=== PATIENT | female | born 1935 | race Caucasian/White ===

== ENCOUNTER → 2018-03-04 10:52 | Outpatient (CLI) | payer MEDICARE, BC, SELFPAY ==
--- NOTE | 2018-03-04 10:54 | DI.MG.S_ITS ---
BILATERAL DIGITAL SCREENING MAMMOGRAM 3D/2D WITH CAD: 03/04/2018 CLINICAL: Routine screening. Comparison is made to exams dated: 02/23/2017 mammogram, 02/21/2016 mammogram, and 02/02/2015 mammogram - [facility]. The tissue of both breasts is extremely dense, which lowers the sensitivity of mammography. Current study was also evaluated with a Computer Aided Detection (CAD) system. No significant masses, calcifications, or other findings are seen in either breast. There has been no significant interval change. IMPRESSION: NEGATIVE There is no mammographic evidence of malignancy. A 1 year screening mammogram is recommended. This exam was interpreted at Station ID: [id number]. NOTE: For mammograms, a report in lay terms will be sent to the patient. Approximately 15% of breast malignancies will not be visualized mammographically. In the management of a palpable breast mass, a negative mammogram must not discourage biopsy of a clinically suspicious lesion. Electronically Signed By: Andrew arias/yany:03/04/2018 16:35:38 letter sent: Normal Exam ACR BI-RADS Category 1: Negative [id number]
== END ==
PROVIDERS: PCP Family Medicine; Visit Provider Family Medicine
DX: Z12.31 Encounter for screening mammogram for malignant neoplasm of breast (principal)
CPT/HCPCS: 77063; 77067

== ENCOUNTER → 2018-03-14 13:28 | Outpatient (CLI) | payer MEDICARE, BC, SELFPAY ==
--- NOTE | 2018-03-14 13:30 | DI.RAD.S_ITS ---
PROCEDURE: XR KNEE LT 3V INDICATIONS: Pain in left knee TECHNIQUE: 3 views of the knee were acquired. COMPARISON: [facility] [place], [place], KNEE SERIES RT, 01/12/2014, 15:25. FINDINGS: Bones: No fractures or dislocations. No suspicious bony lesions. Loose bodies anterior lateral compartment. Joint space narrowing medial compartment and lateral aspect of the femoral patellar compartment. Marginal bony lipping. Soft tissues: No joint effusion. No suspicious soft tissue calcifications. IMPRESSION: 1. No joint effusion or acute bony abnormality. 2. Tricompartmental osteoarthritis 3. Loose bodies Dictated by: Jesus Bah M.D. on 03/14/2018 at 13:57 Approved by: Jesus Bah M.D. on 03/14/2018 at 13:59
== END ==
PROVIDERS: PCP Family Medicine; Visit Provider Physician Assistant
DX: M17.12 Unilateral primary osteoarthritis, left knee (principal); M23.42 Loose body in knee, left knee; M25.562 Pain in left knee
CPT/HCPCS: 73562

== ENCOUNTER 2018-05-02 10:30 | Outpatient (RCR) | payer MEDICARE, BC, SELFPAY ==
--- NOTE | 2018-04-10 10:30 | PT.OIE ---
Current Diagnoses Pain in left knee (04/10/18) Past Medical History (Last Updated 04/11/18 @ 14:25 by Emma Birch DO) Motion sickness (Chronic) Hyperlipidemia (Chronic 03/30/11) Basal cell carcinoma (BCC) (Chronic 01/21/14) Cataract of both eyes (Chronic 01/21/14) History of actinic keratosis (Chronic 04/23/14) Essential hypertension (Chronic 06/03/15) Other seasonal allergic rhinitis (Chronic 06/03/15) Gastroesophageal reflux disease without esophagitis (Chronic 03/15/16) Prediabetes (Chronic 12/27/16) Osteopenia (Chronic 12/27/16) Family history of cerebrovascular accident (CVA) (Chronic 04/16/17) Past Surgical History (Last Updated 12/25/17 @ 20:10 by Mary Bustos) Status post colonoscopy (05/19/11) Status post laparoscopic supracervical hysterectomy Provider Visit Care Team Role Provider Type Emma Birch DO Family Provider Physician Primary Care Provider Specialty: Family Practice Address: [address] [place] [address], [facility] Email: [email or web address] Felicita Potter PA-C Attending Provider [employer] Specialty: Medical Address: [address] [place] [address], [facility] Email: Physical Therapy Initial Evaluation PT-OP-A Visit Information Start: 04/12/18 08:29 Freq: Status: Active Protocol: Document 04/10/18 09:45 DCW (Rec: 04/12/18 09:14 DC [id number]) Out-Patient Physical Therapy Visit Information Visit Information Visit Type Initial Evaluation Visit Start Time 09:45 Visit Stop Time 10:30 Total Visit Minutes 45 Visit Number 1 Number of SPACE [employer] MISSI[employer]PERATIONS SPACELIFT Visits 0 Evaluation Information Evaluation Date 04/10/18 PT-OP-B Current Condition Start: 04/12/18 08:29 Freq: Status: Active Protocol: Document 04/10/18 09:45 DCW (Rec: 04/12/18 09:14 DC [id number]) Current Condition History of Current Condition Onset Date 1 month history Current Complaints Knee pain upon first standing after rest History of Current Condition Pt is an 82 year old female presenting with comlaints of knee pain upon first rising in the morning or after sitting. Pt reports a burning pain along her medial knee, and reports she feels like it is swollen. Pt has received x- rays, which show tricompartmental osteoarthritis and loose bodies in the anteriolateral compartment. Pt enjoys going out dancing, but has been very apprehensive about it recently, because she does not want to twist on it and make it hurt more. Pt reports her knee has been bothering her more than a month, and pt also admits that she fell walking down the stairts less than two months ago, but she does not feel that these two instances are related. Prior Treatments and Tests X-ray: 1. No joint effusion or acute bony abnormality. 2. Tricompartmental osteoarthritis 3. Loose bodies Future Testing and Treatments Planned Possible cortisone injection Treatment Goals Patient/Caregiver Goals I just want to get rid of this pain. Prior Functional Status Baseline Function- ADL's Independent Baseline Function- Mobility Independent Current Functional Impairments (Reported) Functional Limitations- Recreation/ Apprehensive with dancing and Hobbies performing housework. PT-OP-C Subjective Start: 04/12/18 08:29 Freq: Status: Active Protocol: Document 04/10/18 09:45 DC (Rec: 04/12/18 09:14 [facility] [id number]) Patient Questionnaires Lower Extremity Functional Scale LEFS Score 46/80 = 57.5% LEFS Impairment 40 to 59% Impaired (Score 32- 47) OP-PT Pain Assessment Pain Assessment Grid Paper Pain Assessment Grid Completed Yes Location Left Medial Knee Intensity 3 Scale Used Numeric (1 - 10) Description Burning Frequency Occasional Pain Aggravating Factors Standing Walking Pain Alleviating Factors Cold PT-OP-F Manual Assessment Start: 04/12/18 08:29 Freq: Status: Active Protocol: Document 04/10/18 09:45 DCW (Rec: 04/12/18 09:14 [facility] [id number]) Manual Assessments Soft Tissue Assessment Soft Tissue Mobility Assessment Mild tenderness and tone in distal medial hamstring and proximal medial gastroc. Joint Mobility Assessment Joint Mobility Assessment 2/4 Tenderness with palpation to medial joint line/MCL PT-OP-K Range of Motion Start: 04/12/18 08:29 Freq: Status: Active Protocol: Document 04/10/18 09:45 DCW (Rec: 04/12/18 09:14 DC [id number]) Knee Goniometric Range of Motion Knee Measured in Degrees Right Knee ROM WFL Yes Left Knee ROM WFL Yes PT-OP-L Special Tests Start: 04/12/18 08:29 Freq: Status: Active Protocol: Document 04/10/18 09:45 DCW (Rec: 04/12/18 09:14 DCW [id number]) Special Tests Knee Special Tests Varus- 25 Degrees Test Results Negative Varus- 0 Degrees Test Results Negative Valgus- 25 Degrees Test Results Negative Valgus- 0 Degrees Test Results Negative Posterior Draw Test Results Negative Patellar Grind Test Test Results Negative Patella Tap Test Results Negative Reddy Test Test Results Negative Salgado Chondromalacia Test Results Negative Audrey's Test Results Negative Moore Test Test Results Negative Bounce Home Test Results Negative Apprehension Test Test Results Negative Apley's Compression Test Results Negative Anterior Draw Test Results Negative PT-OP-M Strength Start: 04/12/18 08:29 Freq: Status: Active Protocol: Document 04/10/18 09:45 DCW (Rec: 04/12/18 09:14 DCW [id number]) Knee Strength Knee Manual Muscle Testing Right Flexion (S2) 4+ Good+ Extension (L3) 4+ Good+ Left Flexion (S2) 4+ Good+ Extension (L3) 4+ Good+ Comments Mild pain with resisted flexion PT-OP-T Assessment and Plan Start: 04/12/18 08:29 Freq: Status: Active Protocol: Document 04/10/18 09:45 DCW (Rec: 04/12/18 09:14 DC [id number]) Physical Therapy Assessment Rehab Potential Rehabilitation Potential Good Evaluation Complexity Number of Personal Factors/Comorbidities 0 Number of Body Systems Impaired 1-2 Clinical Presentation at Evaluation Stable Impairments Impairments Pain Soft Tissue Mobility Tone Goals Three Impairment Muscle Tone Short Term Goal (STG) Distal hamstring and proximal gastroc tone WNL STG Duration 04/24/18 Two Impairment Activity Tolerace Short Term Goal (STG) Pt to go out dancing three times with no complaints of increased pain STG Duration 04/24/18 Body Man Goal (LTG) Pt to report no pain upon first standing up from a chair LTG Duration 05/25/18 One Impairment Pt lacks independent HEP Short Term Goal (STG) Pt independent and compliant with HEP STG Duration 04/24/18 Assessment Summary Assessment Pt presented with complaints of knee pain upon first standing in the morning or when getting up from a chair. Examination was largely negative, with pt's only noted complaints being fairly mild tenderness along the medial joint line, and medial hamstrings and gastroc directly around the joint. All special testing was negative, no edema or joint effusion was noted, and pt exhibited exvellent ROM and strength. Pt has minmal deficits to actually work on, and therapist explained that pt's pain was likely secondary to osteoarthritis aggravated by her fall. Pt understands this, but is also leaving soon for a cruise, and is worried pain will limit her participation in activities. Pt was given an HEP consisting of strengthening and stretching exercises, and instructed to return in one week for assessment of how she is functioning. With no actual functional deficits, pt is unlikely to make much progress with skilled therapy, however she may benefit from a cortisone injection. Physical Therapy Plan Frequency and Duration Frequency of Treatment 2x/Week Duration of Treatment 6 weeks Plan of Care Start Date 04/10/18 Plan of Care End Date 05/22/18 Therapeutic Interventions Therapeutic Interventions Aquatic Therapy Home Exercise Program Joint Mobilizations Manual Therapy Soft Tissue Mobilization Taping Therapeutic Exercises Modalities Cold Pack/Ice Massage Electric Stimulation Hot Packs Ultrasound Next Visit Focus/Plan Next Note Type Treatment Note Next Visit Plan Assessment of effectiveness of HEP, with advancement as necessary. STM/maual therapy of left knee and surrounding musculature, pain-control modalities as needed.
--- NOTE | 2018-04-12 09:17 | PT.OPPOC ---
Current Diagnoses Pain in left knee (04/10/18) Provider Visit Care Team Role Provider Type Emma Birch DO Family Provider Physician Primary Care Provider Specialty: Family Practice Address: [address] [place] [address], [address] Email: [email or web address] Felicita Potter PA-C Attending Provider [employer] Specialty: Medical Address: [address] [place] [address], [address] Email: Plan Of Care PT-OP-T Assessment and Plan Start: 04/12/18 08:29 Freq: Status: Active Protocol: Document 04/10/18 09:45 DCW (Rec: 04/12/18 09:14 DCW [id number]) Physical Therapy Assessment Rehab Potential Rehabilitation Potential Good Evaluation Complexity Number of Personal Factors/Comorbidities 0 Number of Body Systems Impaired 1-2 Clinical Presentation at Evaluation Stable Impairments Impairments Pain Soft Tissue Mobility Tone Goals Three Impairment Muscle Tone Short Term Goal (STG) Distal hamstring and proximal gastroc tone WNL STG Duration 04/24/18 Two Impairment Activity Tolerance Short Term Goal (STG) Pt to go out dancing three times with no complaints of increased pain STG Duration 04/24/18 Alf Goal (LTG) Pt to report no pain upon first standing up from a chair LTG Duration 05/25/18 One Impairment Pt lacks independent HEP Short Term Goal (STG) Pt independent and compliant with HEP STG Duration 04/24/18 Assessment Summary Assessment Pt presented with complaints of knee pain upon first standing in the morning or when getting up from a chair. Examination was largely negative, with pt's only noted complaints being fairly mild tenderness along the medial joint line, and medial hamstrings and gastroc directly around the joint. All special testing was negative, no edema or joint effusion was noted, and pt exhibited excellent ROM and strength. Pt has minimal deficits to actually work on, and therapist explained that pt's pain was likely secondary to osteoarthritis aggravated by her fall. Pt understands this, but is also leaving soon for a cruise, and is worried pain will limit her participation in activities. Pt was given an HEP consisting of strengthening and stretching exercises, and instructed to return in one week for assessment of how she is functioning. With no actual functional deficits, pt is unlikely to make much progress with skilled therapy, however she may benefit from a cortisone injection. Physical Therapy Plan Frequency and Duration Frequency of Treatment 2x/Week Duration of Treatment 6 weeks Plan of Care Start Date 04/10/18 Plan of Care End Date 05/22/18 Therapeutic Interventions Therapeutic Interventions Aquatic Therapy Home Exercise Program Joint Mobilizations Manual Therapy Soft Tissue Mobilization Taping Therapeutic Exercises Modalities Cold Pack/Ice Massage Electric Stimulation Hot Packs Ultrasound Next Visit Focus/Plan Next Note Type Treatment Note Next Visit Plan Assessment of effectiveness of HEP, with advancement as necessary. STM/manual therapy of left knee and surrounding musculature, pain-control modalities as needed. Plan of Care Dates Plan of Care Start Date 04/10/18 Plan of Care End Date 05/22/18 Please Sign and Return: I have reviewed this Plan of Care and certify that the skilled therapy services above are required to meet the patient?s needs. Physician Signature Date Printed Name and Credentials Clinical Instructor Signature Printed Name and Credentials
--- NOTE | 2018-04-18 14:30 | PT.OTN ---
Current Diagnoses Pain in left knee (04/18/18) Physical Therapy Treatment Note PT-OP-A Visit Information Start: 04/12/18 08:29 Freq: Status: Active Protocol: Document 04/18/18 14:30 RCC (Rec: 04/18/18 17:49 RCC [email or web address]) Out-Patient Physical Therapy Visit Information Visit Information Visit Type Treatment Note Visit Note pt wished to ice @home. Visit Start Time 13:45 Visit Stop Time 14:30 Total Visit Minutes 45 Visit Number 2 Number of ORNAMENTAL METAL WORKER Visits 0 Evaluation Information Evaluation Date 04/10/18 PT-OP-B Current Condition Start: 04/12/18 08:29 Freq: Status: Active Protocol: Document 04/10/18 09:45 DCW (Rec: 04/12/18 09:14 DCW [id number]) Current Condition History of Current Condition Onset Date 1 month history Current Complaints Knee pain upon first standing after rest History of Current Condition Pt is an 82 year old female presenting with comlaints of knee pain upon first rising in the morning or after sitting. Pt reports a burning pain along her medial knee, and reports she feels like it is swollen. Pt has received x- rays, which show tricompartmental osteoarthritis and loose bodies in the anteriolateral compartment. Pt enjoys going out dancing, but has been very apprehensive about it recently, because she does not want to twist on it and make it hurt more. Pt reports her knee has been bothering her more than a month, and pt also admits that she fell walking down the stairts less than two months ago, but she does not feel that these two instances are related. Prior Treatments and Tests X-ray: 1. No joint effusion or acute bony abnormality. 2. Tricompartmental osteoarthritis 3. Loose bodies Future Testing and Treatments Planned Possible cortisone injection Treatment Goals Patient/Caregiver Goals I just want to get rid of this pain. Prior Functional Status Baseline Function- ADL's Independent Baseline Function- Mobility Independent Current Functional Impairments (Reported) Functional Limitations- Recreation/ Apprehensive with dancing and Hobbies performing housework. PT-OP-C Subjective Start: 04/12/18 08:29 Freq: Status: Active Protocol: Document 04/18/18 14:30 RCC (Rec: 04/18/18 17:49 RCC [id number]) OP-PT Subjective Patient Comments Patient Comments Pt is doing her HEP and states that exercising feels good. She still is cautious with twisting and is not yet dancing at her prior level. PT-OP-F Manual Assessment Start: 04/12/18 08:29 Freq: Status: Active Protocol: Document 04/18/18 14:30 RCC (Rec: 04/18/18 17:49 RCC [id number]) Manual Assessments Soft Tissue Assessment Soft Tissue Mobility Assessment TTP: pes anserine (left knee) PT-OP-K Range of Motion Start: 04/12/18 08:29 Freq: Status: Active Protocol: Document 04/10/18 09:45 DCW (Rec: 04/12/18 09:14 DCW [id number]) Knee Goniometric Range of Motion Knee Measured in Degrees Right Knee ROM WFL Yes Left Knee ROM WFL Yes PT-OP-L Special Tests Start: 04/12/18 08:29 Freq: Status: Active Protocol: Document 04/10/18 09:45 DCW (Rec: 04/12/18 09:14 DCW [id number]) Special Tests Knee Special Tests Varus- 25 Degrees Test Results Negative Varus- 0 Degrees Test Results Negative Valgus- 25 Degrees Test Results Negative Valgus- 0 Degrees Test Results Negative Posterior Draw Test Results Negative Patellar Grind Test Test Results Negative Patella Tap Test Results Negative Reddy Test Test Results Negative Salgado Chondromalacia Test Results Negative Audrey's Test Results Negative Moore Test Test Results Negative Bounce Home Test Results Negative Apprehension Test Test Results Negative Apley's Compression Test Results Negative Anterior Draw Test Results Negative PT-OP-M Strength Start: 04/12/18 08:29 Freq: Status: Active Protocol: Document 04/10/18 09:45 DCW (Rec: 04/12/18 09:14 DCW [id number]) Knee Strength Knee Manual Muscle Testing Right Flexion (S2) 4+ Good+ Extension (L3) 4+ Good+ Left Flexion (S2) 4+ Good+ Extension (L3) 4+ Good+ Comments Mild pain with resisted flexion PT-OP-Q Treatments Start: 04/12/18 08:29 Freq: Status: Active Protocol: Document 04/18/18 14:30 RCC (Rec: 04/18/18 17:49 RCC [email or web address]) Therapeutic Exercises Supine Exercises 1 Supine Exercise Name SLR Side left Reps/Minutes 1x10 Standing Exercises 1 Standing Exercise Name calf and HS stretch on stairs Side bilateral Manual Therapy Treatment Soft Tissue Mobilization 2 Body Location L medial HS Mobilization Type Strumming Intensity/Depth Moderate Body Position Hooklying 1 Body Location L adductors Mobilization Type Myofascial Release Intensity/Depth Moderate Body Position Hooklying Other Other Manual Treatments L hip adductor stretch PT-OP-R Modalities Start: 04/12/18 08:29 Freq: Status: Active Protocol: Document 04/18/18 14:30 [facility] (Rec: 04/18/18 17:49 [facility] [id number]) Ultrasound Therapy Treatment Left Medial Knee Treatment Duration (minutes) 8 Patient Position Hooklying Coupling Medium Ultrasound Gel Applicator Size (cm2) 5 Frequency Setting (mHz) 1 Mode Setting Pulsed Duty Cycle 50% Intensity Setting (w/cm2) 1.2 PT-OP-T Assessment and Plan Start: 04/12/18 08:29 Freq: Status: Active Protocol: Document 04/18/18 14:30 [facility] (Rec: 04/18/18 17:49 [facility] [id number]) Physical Therapy Assessment Assessment Summary Assessment Pt tolerated STR with minimal c/o pain, but evident tension in medial HS and adductors on the L compared to the R. Pt was able to verbalize her HEP with good recall of all activities. Physical Therapy Plan Frequency and Duration Frequency of Treatment 2x/Week Duration of Treatment 6 weeks Plan of Care Start Date 04/10/18 Plan of Care End Date 05/22/18 Next Visit Focus/Plan Next Note Type Treatment Note Next Visit Plan check tolerance to this treatment, advance LE strengthening as tolerated and manual therapy as needed for decreased muscular tension.
--- NOTE | 2018-04-22 09:45 | PT.OTN ---
Current Diagnoses Pain in left knee (04/22/18) Physical Therapy Treatment Note PT-OP-A Visit Information Start: 04/12/18 08:29 Freq: Status: Active Protocol: Document 04/22/18 09:45 MDD (Rec: 04/22/18 10:46 MDD [id number]) Out-Patient Physical Therapy Visit Information Visit Information Visit Type Treatment Note Visit Start Time 09:02 Visit Stop Time 09:45 Total Visit Minutes 43 Visit Number 3 Number of MANAGER CREATIVE SERVICES Visits 0 Evaluation Information Evaluation Date 04/10/18 PT-OP-B Current Condition Start: 04/12/18 08:29 Freq: Status: Active Protocol: Document 04/10/18 09:45 DCW (Rec: 04/12/18 09:14 DCW [id number]) Current Condition History of Current Condition Onset Date 1 month history Current Complaints Knee pain upon first standing after rest History of Current Condition Pt is an 82 year old female presenting with comlaints of knee pain upon first rising in the morning or after sitting. Pt reports a burning pain along her medial knee, and reports she feels like it is swollen. Pt has received x- rays, which show tricompartmental osteoarthritis and loose bodies in the anteriolateral compartment. Pt enjoys going out dancing, but has been very apprehensive about it recently, because she does not want to twist on it and make it hurt more. Pt reports her knee has been bothering her more than a month, and pt also admits that she fell walking down the stairts less than two months ago, but she does not feel that these two instances are related. Prior Treatments and Tests X-ray: 1. No joint effusion or acute bony abnormality. 2. Tricompartmental osteoarthritis 3. Loose bodies Future Testing and Treatments Planned Possible cortisone injection Treatment Goals Patient/Caregiver Goals I just want to get rid of this pain. Prior Functional Status Baseline Function- ADL's Independent Baseline Function- Mobility Independent Current Functional Impairments (Reported) Functional Limitations- Recreation/ Apprehensive with dancing and Hobbies performing housework. PT-OP-C Subjective Start: 04/12/18 08:29 Freq: Status: Active Protocol: Document 04/22/18 09:45 MDD (Rec: 04/22/18 10:46 MDD [id number]) OP-PT Subjective Patient Comments Patient Comments Pt reports the ultrasound and manual therapy at her last session has been helpful. Pain has been less severe and less frequent. She has been consistently doing her exercises. PT-OP-F Manual Assessment Start: 04/12/18 08:29 Freq: Status: Active Protocol: Document 04/18/18 14:30 RCC (Rec: 04/18/18 17:49 RCC [email or web address]) Manual Assessments Soft Tissue Assessment Soft Tissue Mobility Assessment TTP: pes anserine (left knee) PT-OP-K Range of Motion Start: 04/12/18 08:29 Freq: Status: Active Protocol: Document 04/10/18 09:45 DCW (Rec: 04/12/18 09:14 DCW [id number]) Knee Goniometric Range of Motion Knee Measured in Degrees Right Knee ROM WFL Yes Left Knee ROM WFL Yes PT-OP-L Special Tests Start: 04/12/18 08:29 Freq: Status: Active Protocol: Document 04/10/18 09:45 DCW (Rec: 04/12/18 09:14 DCW [id number]) Special Tests Knee Special Tests Varus- 25 Degrees Test Results Negative Varus- 0 Degrees Test Results Negative Valgus- 25 Degrees Test Results Negative Valgus- 0 Degrees Test Results Negative Posterior Draw Test Results Negative Patellar Grind Test Test Results Negative Patella Tap Test Results Negative Reddy Test Test Results Negative Salgado Chondromalacia Test Results Negative Audrey's Test Results Negative Moore Test Test Results Negative Bounce Home Test Results Negative Apprehension Test Test Results Negative Apley's Compression Test Results Negative Anterior Draw Test Results Negative PT-OP-M Strength Start: 04/12/18 08:29 Freq: Status: Active Protocol: Document 04/10/18 09:45 DCW (Rec: 04/12/18 09:14 DCW [id number]) Knee Strength Knee Manual Muscle Testing Right Flexion (S2) 4+ Good+ Extension (L3) 4+ Good+ Left Flexion (S2) 4+ Good+ Extension (L3) 4+ Good+ Comments Mild pain with resisted flexion PT-OP-Q Treatments Start: 04/12/18 08:29 Freq: Status: Active Protocol: Document 04/22/18 09:45 MDD (Rec: 04/22/18 10:46 MDD [id number]) Cardio Equipment Recumbent Bicycle Duration (Minutes) 5 Resistance 4 Therapeutic Exercises Supine Exercises 1 Supine Exercise Name SLR Side bilateral Resistance added L1 t-band Reps/Minutes 2 x 15 Prone Exercises 1 Prone Exercise Name prone hip extension Side bilateral Resistance L1 t-band Equipment Used pillow under abdomen Reps/Minutes 2 x 10 Sidelying Exercises 1 Sidelying Exercise Name sidelying hip abduction Side bilateral Resistance L1 t- band Reps/Minutes 2 x 15 Comments focus on proper form Manual Therapy Treatment Soft Tissue Mobilization 2 Body Location L medial HS Mobilization Type Strumming Intensity/Depth Moderate Body Position Hooklying 1 Body Location L adductors Mobilization Type Myofascial Release Intensity/Depth Moderate Body Position Hooklying PT-OP-R Modalities Start: 04/12/18 08:29 Freq: Status: Active Protocol: Document 04/22/18 09:45 MDD (Rec: 04/22/18 10:46 [facility] [id number]) Ultrasound Therapy Treatment Left Medial Knee Treatment Duration (minutes) 8 Patient Position Hooklying Coupling Medium Ultrasound Gel Applicator Size (cm2) 5 Frequency Setting (mHz) 1 Mode Setting Pulsed Duty Cycle 50% Intensity Setting (w/cm2) 1.2 PT-OP-T Assessment and Plan Start: 04/12/18 08:29 Freq: Status: Active Protocol: Document 04/22/18 09:45 MDD (Rec: 04/22/18 10:46 [facility] [id number]) Physical Therapy Assessment Assessment Summary Assessment Pt reports significant relief following manual therapy and US despite reporting very little pain today. Demonstrates good knowledge of HEP, tolerated increase in resistence with all exercises. Physical Therapy Plan Next Visit Focus/Plan Next Note Type Treatment Note Next Visit Plan Continue to assess tolerance to treatment. Trial dance movements she has been cautious about doing.
--- NOTE | 2018-04-25 11:55 | PT.OTN ---
Current Diagnoses Pain in left knee (04/25/18) Physical Therapy Treatment Note PT-OP-A Visit Information Start: 04/12/18 08:29 Freq: Status: Active Protocol: Document 04/25/18 11:55 RCC (Rec: 04/25/18 13:46 RCC [email or web address]) Out-Patient Physical Therapy Visit Information Visit Information Visit Type Treatment Note Visit Start Time 11:15 Visit Stop Time 11:55 Total Visit Minutes 40 Visit Number 4 Number of SWITCH HOUSE OPERATOR Visits 0 Evaluation Information Evaluation Date 04/10/18 PT-OP-B Current Condition Start: 04/12/18 08:29 Freq: Status: Active Protocol: Document 04/10/18 09:45 DCW (Rec: 04/12/18 09:14 DCW [id number]) Current Condition History of Current Condition Onset Date 1 month history Current Complaints Knee pain upon first standing after rest History of Current Condition Pt is an 82 year old female presenting with comlaints of knee pain upon first rising in the morning or after sitting. Pt reports a burning pain along her medial knee, and reports she feels like it is swollen. Pt has received x- rays, which show tricompartmental osteoarthritis and loose bodies in the anteriolateral compartment. Pt enjoys going out dancing, but has been very apprehensive about it recently, because she does not want to twist on it and make it hurt more. Pt reports her knee has been bothering her more than a month, and pt also admits that she fell walking down the stairts less than two months ago, but she does not feel that these two instances are related. Prior Treatments and Tests X-ray: 1. No joint effusion or acute bony abnormality. 2. Tricompartmental osteoarthritis 3. Loose bodies Future Testing and Treatments Planned Possible cortisone injection Treatment Goals Patient/Caregiver Goals I just want to get rid of this pain. Prior Functional Status Baseline Function- ADL's Independent Baseline Function- Mobility Independent Current Functional Impairments (Reported) Functional Limitations- Recreation/ Apprehensive with dancing and Hobbies performing housework. PT-OP-C Subjective Start: 04/12/18 08:29 Freq: Status: Active Protocol: Document 04/25/18 11:55 RCC (Rec: 04/25/18 13:46 RCC [email or web address]) OP-PT Subjective Patient Comments Patient Comments pt continues to notice slow but steady improvements with decreased pain in the L knee. She is doing her new band exercises @ home. She worked outside for 1.5 hrs with her without rest, no increase in knee pain. PT-OP-F Manual Assessment Start: 04/12/18 08:29 Freq: Status: Active Protocol: Document 04/18/18 14:30 RCC (Rec: 04/18/18 17:49 RCC [email or web address]) Manual Assessments Soft Tissue Assessment Soft Tissue Mobility Assessment TTP: pes anserine (left knee) PT-OP-K Range of Motion Start: 04/12/18 08:29 Freq: Status: Active Protocol: Document 04/10/18 09:45 DCW (Rec: 04/12/18 09:14 DCW [id number]) Knee Goniometric Range of Motion Knee Measured in Degrees Right Knee ROM WFL Yes Left Knee ROM WFL Yes PT-OP-L Special Tests Start: 04/12/18 08:29 Freq: Status: Active Protocol: Document 04/10/18 09:45 DCW (Rec: 04/12/18 09:14 DCW [id number]) Special Tests Knee Special Tests Varus- 25 Degrees Test Results Negative Varus- 0 Degrees Test Results Negative Valgus- 25 Degrees Test Results Negative Valgus- 0 Degrees Test Results Negative Posterior Draw Test Results Negative Patellar Grind Test Test Results Negative Patella Tap Test Results Negative Reddy Test Test Results Negative Salgado Chondromalacia Test Results Negative Audrey's Test Results Negative Moore Test Test Results Negative Bounce Home Test Results Negative Apprehension Test Test Results Negative Apley's Compression Test Results Negative Anterior Draw Test Results Negative PT-OP-M Strength Start: 04/12/18 08:29 Freq: Status: Active Protocol: Document 04/10/18 09:45 DCW (Rec: 04/12/18 09:14 DCW [id number]) Knee Strength Knee Manual Muscle Testing Right Flexion (S2) 4+ Good+ Extension (L3) 4+ Good+ Left Flexion (S2) 4+ Good+ Extension (L3) 4+ Good+ Comments Mild pain with resisted flexion PT-OP-Q Treatments Start: 04/12/18 08:29 Freq: Status: Active Protocol: Document 04/25/18 11:55 RCC (Rec: 04/25/18 13:46 RCC [email or web address]) Cardio Equipment Recumbent Elliptical (Biodex) Duration (Minutes) 6 Resistance 4 Therapeutic Exercises Standing Exercises 1 Standing Exercise Name calf and HS stretch on stairs Side bilateral Manual Therapy Treatment Soft Tissue Mobilization 2 Body Location L medial HS Mobilization Type Strumming Intensity/Depth Moderate Body Position Hooklying 1 Body Location L adductors Mobilization Type Myofascial Release Intensity/Depth Moderate Body Position Hooklying Neuro Re-Education Treatment Balance Activities 1 Details SL eyes open, tandem eyes open and closed Surface firm Equipment // bars Comments bilateral PT-OP-R Modalities Start: 04/12/18 08:29 Freq: Status: Active Protocol: Document 04/25/18 11:55 [facility] (Rec: 04/25/18 13:46 [facility] [email or web address]) Ultrasound Therapy Treatment Left Medial Knee Treatment Duration (minutes) 8 Patient Position Hooklying Coupling Medium Ultrasound Gel Applicator Size (cm2) 5 Frequency Setting (mHz) 1 Mode Setting Pulsed Duty Cycle 50% Intensity Setting (w/cm2) 1.2 PT-OP-T Assessment and Plan Start: 04/12/18 08:29 Freq: Status: Active Protocol: Document 04/25/18 11:55 [facility] (Rec: 04/25/18 13:46 [facility] [email or web address]) Physical Therapy Assessment Assessment Summary Assessment Pt with increased sway and decreased time standing on affected LE compared to the non-affected. Pt appears to be improving with activity tolerance, being able to tolerate yard work yesterday with soreness but no increased pain. Physical Therapy Plan Frequency and Duration Frequency of Treatment 2x/Week Duration of Treatment 6 weeks Plan of Care Start Date 04/10/18 Plan of Care End Date 05/22/18 Next Visit Focus/Plan Next Note Type Treatment Note Next Visit Plan prog. LE strength and stabilty , return to recreational activities (dancing)
--- NOTE | 2018-04-29 09:46 | PT.OTN ---
Current Diagnoses Pain in left knee (04/29/18) Physical Therapy Treatment Note PT-OP-A Visit Information Start: 04/12/18 08:29 Freq: Status: Active Protocol: Document 04/29/18 09:46 MDD (Rec: 04/29/18 10:50 MDD [email or web address]) Out-Patient Physical Therapy Visit Information Visit Information Visit Type Treatment Note Visit Start Time 09:01 Visit Stop Time 09:46 Total Visit Minutes 45 Visit Number 5 Evaluation Information Evaluation Date 04/10/18 PT-OP-B Current Condition Start: 04/12/18 08:29 Freq: Status: Active Protocol: Document 04/10/18 09:45 DCW (Rec: 04/12/18 09:14 DCW [id number]) Current Condition History of Current Condition Onset Date 1 month history Current Complaints Knee pain upon first standing after rest History of Current Condition Pt is an 82 year old female presenting with comlaints of knee pain upon first rising in the morning or after sitting. Pt reports a burning pain along her medial knee, and reports she feels like it is swollen. Pt has received x- rays, which show tricompartmental osteoarthritis and loose bodies in the anteriolateral compartment. Pt enjoys going out dancing, but has been very apprehensive about it recently, because she does not want to twist on it and make it hurt more. Pt reports her knee has been bothering her more than a month, and pt also admits that she fell walking down the stairts less than two months ago, but she does not feel that these two instances are related. Prior Treatments and Tests X-ray: 1. No joint effusion or acute bony abnormality. 2. Tricompartmental osteoarthritis 3. Loose bodies Future Testing and Treatments Planned Possible cortisone injection Treatment Goals Patient/Caregiver Goals I just want to get rid of this pain. Prior Functional Status Baseline Function- ADL's Independent Baseline Function- Mobility Independent Current Functional Impairments (Reported) Functional Limitations- Recreation/ Apprehensive with dancing and Hobbies performing housework. PT-OP-C Subjective Start: 04/12/18 08:29 Freq: Status: Active Protocol: Document 04/29/18 09:46 MDD (Rec: 04/29/18 10:50 MDD [email or web address]) OP-PT Subjective Patient Comments Patient Comments Pt reports she was able to go dancing for 1.5 hours with her saturday night with only one small twinge of L knee pain. PT-OP-F Manual Assessment Start: 04/12/18 08:29 Freq: Status: Active Protocol: Document 04/18/18 14:30 RCC (Rec: 04/18/18 17:49 RCC [email or web address]) Manual Assessments Soft Tissue Assessment Soft Tissue Mobility Assessment TTP: pes anserine (left knee) PT-OP-K Range of Motion Start: 04/12/18 08:29 Freq: Status: Active Protocol: Document 04/10/18 09:45 DCW (Rec: 04/12/18 09:14 DCW [id number]) Knee Goniometric Range of Motion Knee Measured in Degrees Right Knee ROM WFL Yes Left Knee ROM WFL Yes PT-OP-L Special Tests Start: 04/12/18 08:29 Freq: Status: Active Protocol: Document 04/10/18 09:45 DCW (Rec: 04/12/18 09:14 DCW [id number]) Special Tests Knee Special Tests Varus- 25 Degrees Test Results Negative Varus- 0 Degrees Test Results Negative Valgus- 25 Degrees Test Results Negative Valgus- 0 Degrees Test Results Negative Posterior Draw Test Results Negative Patellar Grind Test Test Results Negative Patella Tap Test Results Negative Reddy Test Test Results Negative Salgado Chondromalacia Test Results Negative Audrey's Test Results Negative Moore Test Test Results Negative Bounce Home Test Results Negative Apprehension Test Test Results Negative Apley's Compression Test Results Negative Anterior Draw Test Results Negative PT-OP-M Strength Start: 04/12/18 08:29 Freq: Status: Active Protocol: Document 04/10/18 09:45 DCW (Rec: 04/12/18 09:14 DCW [id number]) Knee Strength Knee Manual Muscle Testing Right Flexion (S2) 4+ Good+ Extension (L3) 4+ Good+ Left Flexion (S2) 4+ Good+ Extension (L3) 4+ Good+ Comments Mild pain with resisted flexion PT-OP-Q Treatments Start: 04/12/18 08:29 Freq: Status: Active Protocol: Document 04/29/18 09:46 MDD (Rec: 04/29/18 10:50 MDD [email or web address]) Cardio Equipment Recumbent Elliptical (Biodex) Duration (Minutes) 5 Resistance 4 Gym Equipment Shuttle Balance standing balance Details Red loops for shuttle Reps/Duration 5 minutes Comments standing balance on shuttle, practice equalizing weight on B LE's Therapeutic Exercises Standing Exercises standing hip extension Side bilateral Resistance L1 t- band Reps/Minutes 2 x 12 standing hip flexion Side bilateral Resistance L1 t-band Reps/Minutes 2 x 12 standing hip abduction Side bilateral Resistance L1 t- band Reps/Minutes 2 x 12 1 Standing Exercise Name calf and HS stretch on stairs Side bilateral Reps/Minutes 2 x 30 seconds each Therapeutic Activity Therapeutic Activity stair training Reps/Minutes 2 x 6 steps Comments Practice activating gluteals with ascending/descending steps Static balance Name tandem stance and single leg stance Reps/Minutes 2 x 20 seconds each Comments Bilateral PT-OP-R Modalities Start: 04/12/18 08:29 Freq: Status: Active Protocol: Document 04/25/18 11:55 RCC (Rec: 04/25/18 13:46 [facility] [email or web address]) Ultrasound Therapy Treatment Left Medial Knee Treatment Duration (minutes) 8 Patient Position Hooklying Coupling Medium Ultrasound Gel Applicator Size (cm2) 5 Frequency Setting (mHz) 1 Mode Setting Pulsed Duty Cycle 50% Intensity Setting (w/cm2) 1.2 PT-OP-T Assessment and Plan Start: 04/12/18 08:29 Freq: Status: Active Protocol: Document 04/29/18 09:46 MDD (Rec: 04/29/18 10:50 MDD [email or web address]) Physical Therapy Assessment Goals Three Impairment Muscle Tone Short Term Goal (STG) Distal hamstring and proximal gastroc tone WNL STG Duration 04/24/18 Two Impairment Activity Tolerance Short Term Goal (STG) Pt to go out dancing three times with no complaints of increased pain STG Duration 04/24/18 Senior Living Goal (LTG) Pt to report no pain upon first standing up from a chair LTG Duration 05/25/18 One Impairment Pt lacks independent HEP Short Term Goal (STG) Pt independent and compliant with HEP STG Duration 04/24/18 Progress Towards Goals Progress Towards Goals Progressing Toward Goals Progress Comments Pt is making good progress towards goals. Has been out dancing once without pain and is feeling less pain overall. Assessment Summary Assessment Pt demonstrating good understanding of progression of exercises today. She will be away on a cruise for most of May, so this is her last visit. Physical Therapy Plan Discharge Physical Therapy Discharge Reasons Patient Request Discharge Comments Pt will be away for the month of May. Has made good progress thus far, but will need new referral for PT upon her return.
--- NOTE | 2018-05-02 11:20 | PT.OTN ---
Current Diagnoses Pain in left knee (05/02/18) Physical Therapy Treatment Note PT-OP-A Visit Information Start: 04/12/18 08:29 Freq: Status: Active Protocol: Document 05/02/18 11:20 RCC (Rec: 05/03/18 15:21 RCC [email or web address]) Out-Patient Physical Therapy Visit Information Visit Information Visit Type Treatment Note Visit Start Time 10:35 Visit Stop Time 11:20 Total Visit Minutes 45 Visit Number 6 Number of CLINICAL SAFETY MANAGER Visits 0 Evaluation Information Evaluation Date 04/10/18 PT-OP-B Current Condition Start: 04/12/18 08:29 Freq: Status: Active Protocol: Document 04/10/18 09:45 DCW (Rec: 04/12/18 09:14 DCW [id number]) Current Condition History of Current Condition Onset Date 1 month history Current Complaints Knee pain upon first standing after rest History of Current Condition Pt is an 82 year old female presenting with comlaints of knee pain upon first rising in the morning or after sitting. Pt reports a burning pain along her medial knee, and reports she feels like it is swollen. Pt has received x- rays, which show tricompartmental osteoarthritis and loose bodies in the anteriolateral compartment. Pt enjoys going out dancing, but has been very apprehensive about it recently, because she does not want to twist on it and make it hurt more. Pt reports her knee has been bothering her more than a month, and pt also admits that she fell walking down the stairts less than two months ago, but she does not feel that these two instances are related. Prior Treatments and Tests X-ray: 1. No joint effusion or acute bony abnormality. 2. Tricompartmental osteoarthritis 3. Loose bodies Future Testing and Treatments Planned Possible cortisone injection Treatment Goals Patient/Caregiver Goals I just want to get rid of this pain. Prior Functional Status Baseline Function- ADL's Independent Baseline Function- Mobility Independent Current Functional Impairments (Reported) Functional Limitations- Recreation/ Apprehensive with dancing and Hobbies performing housework. PT-OP-C Subjective Start: 04/12/18 08:29 Freq: Status: Active Protocol: Document 05/02/18 11:20 RCC (Rec: 05/03/18 15:21 RCC [email or web address]) OP-PT Subjective Patient Comments Patient Comments Pt reports that she is still having some discomfort with turning/twisting, but much better. She will be out of town for 3-4 weeks and unable to attend physical therapy at that time. Patient Reported Progress Improving OP-PT Pain Assessment Location Left Medial Knee Intensity 2 Scale Used Numeric (1 - 10) Description Aching With Movement PT-OP-F Manual Assessment Start: 04/12/18 08:29 Freq: Status: Active Protocol: Document 05/02/18 11:20 RCC (Rec: 05/03/18 15:21 RCC [email or web address]) Manual Assessments Soft Tissue Assessment Soft Tissue Mobility Assessment TTP: pes anserine (left knee)- mild (1) PT-OP-K Range of Motion Start: 04/12/18 08:29 Freq: Status: Active Protocol: Document 04/10/18 09:45 DCW (Rec: 04/12/18 09:14 DCW [id number]) Knee Goniometric Range of Motion Knee Measured in Degrees Right Knee ROM WFL Yes Left Knee ROM WFL Yes PT-OP-L Special Tests Start: 04/12/18 08:29 Freq: Status: Active Protocol: Document 04/10/18 09:45 DCW (Rec: 04/12/18 09:14 DCW [id number]) Special Tests Knee Special Tests Varus- 25 Degrees Test Results Negative Varus- 0 Degrees Test Results Negative Valgus- 25 Degrees Test Results Negative Valgus- 0 Degrees Test Results Negative Posterior Draw Test Results Negative Patellar Grind Test Test Results Negative Patella Tap Test Results Negative Reddy Test Test Results Negative Salgado Chondromalacia Test Results Negative Audrey's Test Results Negative Moore Test Test Results Negative Bounce Home Test Results Negative Apprehension Test Test Results Negative Apley's Compression Test Results Negative Anterior Draw Test Results Negative PT-OP-M Strength Start: 04/12/18 08:29 Freq: Status: Active Protocol: Document 05/02/18 11:20 RCC (Rec: 05/03/18 15:21 RCC [email or web address]) Knee Strength Knee Manual Muscle Testing Left Flexion (S2) 5 Normal Extension (L3) 5 Normal PT-OP-Q Treatments Start: 04/12/18 08:29 Freq: Status: Active Protocol: Document 05/02/18 11:20 RCC (Rec: 05/03/18 15:21 RCC [email or web address]) Therapeutic Exercises Standing Exercises standing hip extension Side bilateral Resistance L1 t- band Reps/Minutes 2 x 12 standing hip flexion Side bilateral Resistance L1 t-band Reps/Minutes 2 x 12 standing hip abduction Side bilateral Resistance L1 t- band Reps/Minutes 2 x 12 1 Standing Exercise Name calf and HS stretch on stairs Side bilateral Reps/Minutes 2 x 30 seconds each Manual Therapy Treatment Soft Tissue Mobilization 2 Body Location L medial HS Mobilization Type Strumming Intensity/Depth Moderate Body Position Hooklying 1 Body Location L adductors Mobilization Type Myofascial Release Intensity/Depth Moderate Body Position Hooklying PT-OP-R Modalities Start: 04/12/18 08:29 Freq: Status: Active Protocol: Document 05/02/18 11:20 RCC (Rec: 05/03/18 15:21 [facility] [email or web address]) Ultrasound Therapy Treatment Left Medial Knee Treatment Duration (minutes) 8 Patient Position Hooklying Coupling Medium Ultrasound Gel Applicator Size (cm2) 5 Frequency Setting (mHz) 1 Mode Setting Pulsed Duty Cycle 50% Intensity Setting (w/cm2) 1.2 PT-OP-T Assessment and Plan Start: 04/12/18 08:29 Freq: Status: Active Protocol: Document 05/02/18 11:20 [facility] (Rec: 05/03/18 15:21 [facility] [email or web address]) Physical Therapy Assessment Progress Towards Goals Progress Towards Goals Progressing Toward Goals Progress Comments pt has been dancing 1x with less pain, does not have pain arising from chair. She has a HEP which she is able to recall without cuing and perform appropriately. Pt still has tenderness (mild) at pes anserine distal insertion and in the mm. Assessment Summary Assessment Pt has progressed well with physical therapy, and has danced once in the past week with less pain/discomfort. Pt will be out of town for 3-4 weeks and unable to attend physical therapy. Therefore, it is recommended that pt perform her HEP and if pain continues or worsens to contact and see her PCP and possibly get a new referral for physical therapy at that time to return if medically necessary. Pt's L knee strength in flexion and extension is WNL (5/5 with MMT ). Physical Therapy Plan Discharge Physical Therapy Discharge Reasons Patient Request Discharge Comments Pt will not be able to attend physical therapy in May.
== END 2018-08-15 13:33 ==
LOC: PHYS 10:30
PROVIDERS: Family Provider Family Medicine; PCP Family Medicine; Visit Provider Physician Assistant
DX: M25.562 Pain in left knee (principal)
CPT/HCPCS: 97035; 97110; 97112; 97140; 97161; 97530

== ENCOUNTER → 2019-01-03 07:39 | Outpatient (CLI) | payer MEDICARE, BC, SELFPAY ==
[2019-01-03 09:10] LABS: Add Manual Diff / Slide Review NO; Basophils Absolute Auto 0 /uL (0-100); Basophils Percent Auto 0.4 % (0-2); Eosinophils Absolute Auto 100 /uL (0-450); Eosinophils Percent Auto 2.1 % (2-4); Hematocrit 41.5 % (36-46); Hemoglobin 14.3 g/dL (12.0-16.0); Lymphocytes Absolute Auto 1100 /uL (1100-4500); Lymphocytes Percent Auto 31.4 % (25-40); Mean Corpuscular HGB Conc 34.4 % (30-36); Mean Corpuscular Hemoglobin 30.5 PG (26-34); Mean Corpuscular Volume 88.7 fL (80-100); Monocytes Absolute Auto 400 /uL (0-900); Monocytes Percent Auto 11.1 % (3-14); Neutrophils Absolute Auto 2000 /uL (1500-7000); Platelet Count 268 X10^3/uL (150-400); Red Blood Cell Count 4.68 X10^6/uL (4.0-5.2); Red Cell Distribution Width 12.8 % (11.6-14.8); White Blood Cell Count 3.6 X10^3/uL (4.5-11.0)
[2019-01-03 09:19] LABS: Alanine Aminotransferase 19 IU/L (9-52); Albumin 4.5 g/dL (3.5-5.0); Albumin Globulin Ratio 1.5 (1.0-2.8); Alkaline Phosphatase 66 U/L (38-126); Aspartate Aminotransferase 30 IU/L (14-36); BUN Creatinine Ratio 18.9 (6-22); Bilirubin Total 0.7 mg/dL (0.2-1.3); Blood Urea Nitrogen 17 mg/dL (7-17); Carbon Dioxide 31 mmol/L (22-32); Chloride 94 mmol/L (98-107); Cholesterol 182 mg/dL (140-199); Estimated Glomerular Filt Rate > 60.0 mL/min (>60); Glucose 99 mg/dL (80-110); HDL Cholesterol 42 mg/dL (40-60); HEMOLYSIS < 15 (0-50); LDL Cholesterol Calculated 107 mg/dL (<100); Potassium 3.9 mmol/L (3.4-5.1); Sodium 135 mmol/L (137-145); Total Protein 7.5 g/dL (6.3-8.2); Triglycerides 166 mg/dL (35-150)
== END ==
PROVIDERS: PCP Family Medicine; Visit Provider Family Medicine
DX: E78.5 Hyperlipidemia, unspecified (principal); I10 Essential (primary) hypertension; Z00.00 Encounter for general adult medical examination without abnormal findings
CPT/HCPCS: 36415; 80053; 80061; 85025

== ENCOUNTER → 2019-03-07 12:20 | Outpatient (CLI) | payer MEDICARE, BC, SELFPAY ==
--- NOTE | 2019-03-07 12:22 | DI.MG.S_ITS ---
BILATERAL DIGITAL SCREENING MAMMOGRAM 3D/2D WITH CAD: 03/07/2019 CLINICAL: Routine screening. Comparison is made to exams dated: 03/04/2018 mammogram, 02/23/2017 mammogram, and 02/21/2016 mammogram - [facility]. The tissue of both breasts is extremely dense, which lowers the sensitivity of mammography. Current study was also evaluated with a Computer Aided Detection (CAD) system. No significant masses, calcifications, or other findings are seen in either breast. There has been no significant interval change. IMPRESSION: NEGATIVE There is no mammographic evidence of malignancy. A 1 year screening mammogram is recommended. This exam was interpreted at Station ID: [id number]. NOTE: For mammograms, a report in lay terms will be sent to the patient. Approximately 15% of breast malignancies will not be visualized mammographically. In the management of a palpable breast mass, a negative mammogram must not discourage biopsy of a clinically suspicious lesion. Electronically Signed By: Mary varghese/yany:03/07/2019 13:11:12 letter sent: Normal Exam ACR BI-RADS Category 1: Negative 3341F
== END ==
PROVIDERS: PCP Family Medicine; Visit Provider Family Medicine
DX: Z12.31 Encounter for screening mammogram for malignant neoplasm of breast (principal)
CPT/HCPCS: 77063; 77067

== ENCOUNTER → 2019-06-20 10:42 | Outpatient (CLI) | payer MEDICARE, BC, SELFPAY ==
[2019-06-20 12:00] LABS: Blood Urea Nitrogen 20 mg/dL (7-17); Calcium 10.2 mg/dL (8.4-10.2); Carbon Dioxide 32 mmol/L (22-32); Chloride 101 mmol/L (98-107); Estimated Glomerular Filt Rate > 60.0 mL/min (>60); Glucose 95 mg/dL (80-110); HEMOLYSIS < 15 (0-50); Potassium 4.7 mmol/L (3.4-5.1); Sodium 139 mmol/L (137-145)
== END ==
PROVIDERS: PCP Family Medicine; Visit Provider Family Medicine
DX: I10 Essential (primary) hypertension (principal)
CPT/HCPCS: 36415; 80048

== ENCOUNTER 2020-02-07 07:14 | Emergency (ER) | payer MEDICARE, BC, SELFPAY ==
[2020-02-07 07:27] VITALS: BP 205/83; PULSE 66; RESP 16; TEMP 36.8; O2SAT 96
[2020-02-07 07:35] VITALS: BP 184/93; PULSE 66; RESP 16; TEMP 36.8; O2SAT 98; BMI 23.3
--- NOTE | 2020-02-07 07:42 | ED_ITS ---
HPI - Fall General Chief Complaint: Fall Stated Complaint: Fell on rearend Time Seen by Provider: 02/07/20 07:19 Source: patient and family Mode of arrival: Family Vehicle History of Present Illness HPI Narrative: Patient states she lost her balance getting up at 4:00 a.m. today however bed to go to the bathroom. She states she did not hit anything on the way down. Only complains of right buttock pain. Denies any any other injuries no head neck chest back hip knee shoulder elbow wrist ankle pain. Landed on carpet. Related Data Previous Rx's Medication Instructions Recorded scopolamine base 1 mg over 3 days 1 patch TRANSDERMAL Q3D PRN #10 01/03/18 transdermal patch each temazepam 15 mg capsule 15 mg PO HSP #30 cap 07/10/18 amlodipine 2.5 mg tablet 2.5 mg PO DAILY #90 tab 02/14/19 pravastatin 40 mg tablet 40 mg PO HS #90 tab 06/06/19 estradiol 10 mcg vaginal tablet 10 mcg VAG 2XWEEK #36 tab 06/20/19 fluticasone propionate 50 1 spray INTRANASAL BID #1 bot 06/20/19 mcg/actuation nasal spray,suspension omeprazole 20 mg capsule,delayed 20 mg PO QDAY #90 cap 10/20/19 release Allergies Allergy/AdvReac Type Severity Reaction Status Date / Time adhesive tape [ADHESIVE TAPE] Allergy Mild RASH Verified 02/07/20 07:42 Penicillins Allergy Unknown Verified 02/07/20 07:42 Cephalosporins AdvReac Unknown Verified 02/07/20 07:42 ciprofloxacin AdvReac Unknown Verified 02/07/20 07:42 codeine AdvReac Unknown Verified 02/07/20 07:42 iodine AdvReac Unknown Verified 02/07/20 07:42 NSAIDS (Non-Steroidal AdvReac Unknown Verified 02/07/20 07:42 Anti-Inflamma Review of Systems Review of Systems Narrative: GENERAL: Denies chills, fatigue, malaise, fever, sweats. HEENT: Denies sinus pain, ear pain, sore throat, difficulty swallowing, dizziness. RESPIRATORY: Denies dyspnea, cough, wheezing, hemoptysis, sputum. CARDIOVASCULAR: Denies chest pain, palpitations, orthopnea, edema, GASTROINTESTINAL: Denies nausea, vomiting, abdominal pain, diarrhea, constipation, melena. : Denies dysuria, frequency, incontinence, hematuria, urinary retention. MUSCULOSKELETAL: Complains of right buttock pain SKIN: Denies rash, skin lesions, or other NEUROLOGIC: Denies weakness, headache, numbness, change in speech, confusion, seizures, incoordination. PSYCHIATRIC: No concerning psychosocial issues. ROS Unobtainable: All systems reviewed & are unremarkable except as noted in HPI and below Patient History Medical History Basal cell carcinoma (BCC) (Chronic 01/21/14) Cataract of both eyes (Chronic 01/21/14) Essential hypertension (Chronic 06/03/15) Family history of cerebrovascular accident (CVA) (Chronic 04/16/17) Gastroesophageal reflux disease without esophagitis (Chronic 03/15/16) History of actinic keratosis (Chronic 04/23/14) Hyperlipidemia (Chronic 03/30/11) Motion sickness (Chronic) Osteopenia (Chronic 12/27/16) Other seasonal allergic rhinitis (Chronic 06/03/15) Prediabetes (Chronic 12/27/16) Surgical History Status post colonoscopy (05/19/11) Status post laparoscopic supracervical hysterectomy Family History Brother Myocardial infarct Father Myocardial infarct Mother Myocardial infarct Sister Myocardial infarct Hypertension Sister CVA (cerebral infarction) Malignant neoplasm of colon, unspecified part of colon Social History household members: spouse pets and animals: No education level: other seatbelt use: always water heater temp set < 120 deg: No working smoke detector in home: Yes fire extinguisher in home: Yes carbon monox detector in home: Yes Smoking Status: Never smoker during the past year weight has: remained stable well-balanced diet: daily or most days daily servings fruits/ve-4 caffeine: Yes (1-2 caffeine drinks per day) eating out: other frequency: daily duration: 45-60 minutes/day Smoking Status: Never smoker alcohol intake frequency: a few times a month Substance Use Type: does not use Exam Narrative Exam Narrative: GENERAL: patient appears stated age. Well-nourished, well- developed patient, in no distress, not toxic HEAD: Atraumatic. Normocephalic. Scalp nontender no crepitus no step-offs. ENT: Nose without bleeding, NECK: Trachea midline. Non tender no midline tenderness or step-off. CARDIOVASCULAR: Regular rate and rhythm without murmurs, gallops, or rubs. RESPIRATORY: Clear to auscultation. Breath sounds equal bilaterally. No wheezes, rales, or rhonchi. GASTROINTESTINAL: Abdomen soft, non-tender, nondistended. EXTREMITIES: No edema or joint tenderness. No tenderness deformity of bilateral shoulders elbows wrists hips knees and ankles BACK: Nontender without deformity or crepitance. No flank tenderness. No thoracic or lumbar midline tenderness or step-off. There is tenderness at the right ischium/buttock. No bruise seen. No tenderness at the left ischium/buttock. Female nurse present Leia NEURO: AOx3. SKIN: No rash or erythema of visible areas Initial Vital Signs Initial Vital Signs: Vital Signs Temperature 98.3 F 02/07/20 07:27 Pulse Rate 66 02/07/20 07:27 Respiratory Rate 16 02/07/20 07:27 Blood Pressure 205/83 H 02/07/20 07:27 Pulse Oximetry 96 02/07/20 07:27 Course Course Course Narrative: Blood pressure noted on arrival. Patient was in pain, she did take her blood pressure medication prior to arrival. Blood pressure improved after pain medication. 177/74 at time of discharge. Pain improved Orders Ordered: ED Orders 02/07/20 07:42 CT pelvis wo con Stat Discontinued Medications Ondansetron HCl (Zofran Odt) 4 mg SL NOW ONE Stop: 02/07/20 09:18 Last Admin: 02/07/20 09:38 Dose: 4 mg Documented by: ROSE Oxycodone/Acetaminophen (Percocet 5/325) 1 tab PO NOW ONE Stop: 02/07/20 09:13 Last Admin: 02/07/20 09:37 Dose: 1 tab Documented by: ROSE Vital Signs Vital signs: Vital Signs - 8 hr 02/07/20 07:27 02/07/20 07:35 Temperature 98.3 F 98.3 F Pulse Rate 66 66 Respiratory Rate 16 16 Blood Pressure 184/93 H Blood Pressure [Left Arm] 205/83 H Pulse Oximetry 96 98 MDM - Fall Differential Diagnosis Differential diagnosis: Likely other (Pelvis fracture.... Patient given Percocet. She states she has had Percocet before. Just in a low dose is fine. No allergic reaction to it.) Imaging Data CT scan pelvis: Radiologist's Impression: [address] [address] [address] Scan Report Signed Patient: Katherine Wilson DMR#: [id number] : 1935cct:[id number] Age/Sex: 84 / FDate of Service: 02/07/20 Loc: ED Accession Number: [id number] Procedure: CT pelvis wo con Ordering Provider: Abdoulaye Sosa MD PROCEDURE: CT PEL WO CON INDICATIONS: Fall/injury TECHNIQUE: Noncontrast 3 mm axial sections acquired through the bony pelvis, with coronal and sagittal reformatting. COMPARISON: None. FINDINGS: Image quality: Diagnostic. Bones: There is a minimally displaced fracture involving the coccyx with mild surrounding soft tissue edema. No additional acute pelvic fractures are evident. No suspicious osseous lesions are identified. There are mild degenerative changes of the pelvic joints and moderate degenerative changes of the included lower lumbar spine. Soft tissues: There is a large amount of residual stool identified within the imaged portions of the colon. Image small bowel loops are nondilated. The appendix is well-visualized and normal in size. Distal colonic diverticulosis is identified without definitive surrounding inflammation to suggest diverticulitis. No free fluid, loculated fluid collection or free air is appreciated. 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 No pelvic adenopathy is identified. The urinary bladder is unremarkable. The uterus and ovaries are not adequately characterized on CT, but do not appear to be enlarged. IMPRESSION: 1. Nondisplaced coccygeal fracture. 2. Probable constipation. 3. Colonic diverticulosis without diverticulitis. Dictated by: Juve Foster M.D. on 02/07/2020 at 7:48 Approved by: Juve Foster M.D. on 02/07/2020 at 7:52 Discharge Plan Departure Patient Disposition: Home Clinical Impression: Closed fracture of coccyx Qualifiers: Encounter type: initial encounter Qualified Code(s): S32.2XXA - Fracture of coccyx, initial encounter for closed fracture Instructions: DI for Coccyx Fracture, How to Prevent Falls Activity Restrictions/Additional Instructions: No driving today. See family doctor next week for recheck. Called provided orthopedic office on Sunday for recheck as well. Use donut pillow for comfort when sitting. May use Tylenol for pain. Prescriptions: No Action temazepam 15 mg capsule 15 mg PO HSP Qty: 30 RF: 3 amlodipine 2.5 mg tablet 2.5 mg PO DAILY Qty: 90 RF: 3 pravastatin 40 mg tablet 40 mg PO HS Qty: 90 RF: 3 omeprazole 20 mg capsule,delayed release(DR/EC) 20 mg PO QDAY Qty: 90 RF: 3 scopolamine base 1 mg over 3 days patch 3 day 1 patch Transdermal Q3D PRN (Reason: motion sickness) Qty: 10 RF: 0 estradiol [Vagifem] 10 mcg tablet 10 mcg VAG 2XWEEK Qty: 36 RF: 3 fluticasone propionate 50 mcg/actuation spray,suspension 1 spray Intranasal BID Qty: 1 RF: 3 Referrals: Blas Momin MD [Physician] - 02/09/20 8:00 am (Call for follow-up, coccygeal fracture) Emma Birch DO [Primary Care Provider] -
[2020-02-07] MEDS: OXYCODONE/ACETAMINOPHEN 5/325 TABLET 1 TAB PO (09:37)
[2020-02-07] MEDS: ONDANSETRON 4 MG ODT SL (09:38)
[2020-02-07 10:00] VITALS: BP 177/74; PULSE 57; RESP 16; O2SAT 92
[2020-02-07 10:44] VITALS: BP 155/68; PULSE 59; RESP 16; O2SAT 95
== END 2020-02-07 10:45 | disposition home or self-care (01) ==
PROVIDERS: Emergency Provider Emergency Medicine; PCP Family Medicine
DX: S32.2XXA Fracture of coccyx, initial encounter for closed fracture (principal); W19.XXXA Unspecified fall, initial encounter
CPT/HCPCS: 72192; 99283; 99284

== ENCOUNTER → 2020-04-28 13:28 | Outpatient (CLI) | payer MEDICARE, BC, SELFPAY | PROVIDERS: PCP Family Medicine; Referring Provider Family Medicine; Visit Provider Family Medicine | DX: M85.851 Other specified disorders of bone density and structure, right thigh (principal); Z78.0 Asymptomatic menopausal state; Z90.722 Acquired absence of ovaries, bilateral | CPT/HCPCS: 77080 ==

== ENCOUNTER → 2020-05-11 09:02 | Outpatient (CLI) | payer MEDICARE, BC, SELFPAY ==
--- NOTE | 2020-05-11 09:18 | DI.MG.S_ITS ---
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 Comparison is made to exams dated: 03/07/2019 mammogram, 03/04/2018 mammogram, and 02/23/2017 mammogram - [facility]. The tissue of both breasts is heterogeneously dense. This may lower the sensitivity of mammography. Current study was also evaluated with a Computer Aided Detection (CAD) system. There are benign calcifications in both breasts. There also are benign vascular calcifications in the right breast. Additionally, there are benign post operative findings in the right breast. No significant masses, calcifications, or other findings are seen in either breast. There has been no significant interval change. IMPRESSION: BENIGN There is no mammographic evidence of malignancy. A 1 year screening mammogram is recommended. This exam was interpreted at Station ID: [id number]. NOTE: For mammograms, a report in lay terms will be sent to the patient. Approximately 15% of breast malignancies will not be visualized mammographically. In the management of a palpable breast mass, a negative mammogram must not discourage biopsy of a clinically suspicious lesion. Electronically Signed By: Mary varghese/yany:05/11/2020 12:32:01 letter sent: Normal Exam ACR BI-RADS Category 2: Benign Finding(s) 3342F Continued Report - Page 2 of 2 Patient Name: GRACE HOLDER date: 1935 Sex: F Attending Physician: Eyal Indications: Date: 05/11/2020 09:11 At the request of: MAURICIO LUNA Procedure: MM screening mammo BI
== END ==
PROVIDERS: PCP Family Medicine; Referring Provider Family Medicine; Visit Provider Family Medicine
DX: Z12.31 Encounter for screening mammogram for malignant neoplasm of breast (principal)
CPT/HCPCS: 77063; 77067

== ENCOUNTER → 2020-06-22 07:42 | Outpatient (CLI) | payer MEDICARE, BC, SELFPAY ==
[2020-06-22 09:20] LABS: Alanine Aminotransferase 13 IU/L (<35); Albumin 4.5 g/dL (3.5-5.0); Albumin Globulin Ratio 1.5 (1.0-2.8); Alkaline Phosphatase 81 U/L (38-126); Aspartate Aminotransferase 27 IU/L (14-36); BUN Creatinine Ratio 17.4 (6-22); Bilirubin Total 0.6 mg/dL (0.2-1.3); Blood Urea Nitrogen 15 mg/dL (7-17); Calcium 9.9 mg/dL (8.4-10.2); Carbon Dioxide 32 mmol/L (22-32); Chloride 102 mmol/L (98-107); Cholesterol 156 mg/dL (140-199); Estimated Glomerular Filt Rate > 60.0 mL/min (>60); Glucose 90 mg/dL (80-110); HDL Cholesterol 41 mg/dL (40-60); HEMOLYSIS < 15 (0-50); LDL Cholesterol Calculated 85 mg/dL (<100); Potassium 3.9 mmol/L (3.4-5.1); Sodium 139 mmol/L (137-145); Total Protein 7.5 g/dL (6.3-8.2); Triglycerides 150 mg/dL (35-150)
[2020-06-22 09:45] LABS: TSH w/ Reflex to FT4 3.14 uIU/mL (0.47-4.68)
== END ==
PROVIDERS: PCP Family Medicine; Referring Provider Family Medicine; Visit Provider Family Medicine
DX: E78.5 Hyperlipidemia, unspecified (principal); I10 Essential (primary) hypertension; R41.3 Other amnesia; R73.03 Prediabetes
CPT/HCPCS: 36415; 80053; 80061; 84443

== ENCOUNTER → 2021-04-22 07:48 | Outpatient (CLI) | payer MEDICARE, BC, SELFPAY ==
[2021-04-22 08:43] LABS: Add Manual Diff / Slide Review NO; Basophils Absolute Auto 0 /uL (0-100); Basophils Percent Auto 0.5 % (0-2); Eosinophils Absolute Auto 100 /uL (0-450); Eosinophils Percent Auto 2.2 % (2-4); Hematocrit 41.9 % (36-46); Hemoglobin 14.2 g/dL (12.0-16.0); Lymphocytes Absolute Auto 1400 /uL (1100-4500); Lymphocytes Percent Auto 34.3 % (25-40); Mean Corpuscular HGB Conc 33.8 % (30-36); Mean Corpuscular Hemoglobin 30.6 PG (26-34); Mean Corpuscular Volume 90.4 fL (80-100); Monocytes Absolute Auto 400 /uL (0-900); Monocytes Percent Auto 9.9 % (3-14); Neutrophils Absolute Auto 2200 /uL (1500-7000); Neutrophils Percent Auto 53.1 % (50-75); Platelet Count 241 X10^3/uL (150-400); Red Blood Cell Count 4.64 X10^6/uL (4.0-5.2); Red Cell Distribution Width 13.2 % (11.6-14.8); White Blood Cell Count 4.1 X10^3/uL (4.5-11.0)
[2021-04-22 09:04] LABS: Alanine Aminotransferase 16 IU/L (<35); Albumin 4.5 g/dL (3.5-5.0); Albumin Globulin Ratio 1.7 (1.0-2.8); Alkaline Phosphatase 67 U/L (38-126); Aspartate Aminotransferase 29 IU/L (14-36); BUN Creatinine Ratio 19.1 (6-22); Bilirubin Total 0.7 mg/dL (0.2-1.3); Blood Urea Nitrogen 17 mg/dL (7-17); Calcium 10.1 mg/dL (8.4-10.2); Carbon Dioxide 29 mmol/L (22-32); Chloride 103 mmol/L (98-107); Cholesterol 176 mg/dL (140-199); Estimated Glomerular Filt Rate > 60.0 mL/min (>60); Globulin 2.6 g/dL (1.7-4.1); Glucose 93 mg/dL (80-110); HDL Cholesterol 56 mg/dL (40-60); HEMOLYSIS < 15 (0-50); LDL Cholesterol Calculated 92 mg/dL (<100); Potassium 4.2 mmol/L (3.4-5.1); Sodium 140 mmol/L (137-145); Total Protein 7.1 g/dL (6.3-8.2); Triglycerides 138 mg/dL (35-150)
[2021-04-22 09:46] LABS: TSH w/ Reflex to FT4 3.27 uIU/mL (0.47-4.68)
== END ==
PROVIDERS: PCP Family Medicine; Referring Provider Family Medicine; Visit Provider Family Medicine
DX: E78.2 Mixed hyperlipidemia (principal); I10 Essential (primary) hypertension
CPT/HCPCS: 36415; 80053; 80061; 84443; 85025

== ENCOUNTER → 2021-12-12 12:33 | Outpatient (CLI) | payer MEDICARE, BC, SELFPAY ==
--- NOTE | 2021-12-12 12:36 | DI.US.S_ITS ---
PROCEDURE: US ABDOMEN COMPLETE INDICATIONS: LIVER CYSTS ON OUTSIDE CT TECHNIQUE: Real-time scanning was performed of the abdominal and retroperitoneal organs, with image documentation. COMPARISON: None. FINDINGS: Liver: In the anterior right lobe, there are at least 2 simple cysts, largest measures 1.2 x 0.8 cm. Additional 2.3 x 1.9 x 2.2 cm simple cyst noted in the left hepatic lobe. Liver is otherwise unremarkable in size and echotexture. Gallbladder: Sonolucent without evidence cholelithiasis, gallbladder wall thickening or pericholecystic fluid. No sonographic Bojorquez sign. Biliary ducts: Intrahepatic bile ducts are non-dilated. Extrahepatic bile duct caliber measures 3.8 mm. Normal is 6-7 mm or less in diameter, or 10 mm or less post-cholecystectomy. Pancreas: Visualized portions of the pancreas are sonographically normal. Spleen: Spleen is normal in size and homogeneous in echotexture. Kidneys: Kidneys are normal in size and echotexture. Right kidney measures 9.6 cm long; left kidney measures 9.4 cm long. No hydronephrosis or nephrolithiasis. No solid masses. Aorta: Visualized aorta is normal in caliber at less than 3 cm. Iliacs: Proximal common iliac arteries are normal in caliber at less than 2.5 cm. IVC: Intrahepatic inferior vena cava is patent. Miscellaneous: No free abdominal fluid. IMPRESSION: Simple hepatic cysts. Otherwise unremarkable ultrasound the abdomen. Approved by: José Harkins M.D. on 12/12/2021 at 13:40
== END ==
PROVIDERS: PCP Family Medicine; Referring Provider Family Medicine; Visit Provider Family Medicine
DX: R93.5 Abnormal findings on diagnostic imaging of other abdominal regions, including retroperitoneum (principal); K76.89 Other specified diseases of liver
CPT/HCPCS: 76700

== ENCOUNTER → 2022-01-02 10:53 | Outpatient (CLI) | payer MEDICARE, BC, SELFPAY ==
--- NOTE | 2022-01-02 10:55 | DI.MG.S_ITS ---
BILATERAL DIGITAL SCREENING MAMMOGRAM 3D/2D WITH CAD: 01/02/2022 CLINICAL: Routine screening. Comparison is made to exams dated: 05/11/2020 mammogram, 03/07/2019 mammogram, and 03/04/2018 mammogram - [facility]. The tissue of both breasts is heterogeneously dense. This may lower the sensitivity of mammography. Current study was also evaluated with a Computer Aided Detection (CAD) system. There are benign calcifications in both breasts. There also are benign vascular calcifications in the right breast. Additionally, there are benign post operative findings in the right breast. No significant masses, calcifications, or other findings are seen in either breast. There has been no significant interval change. IMPRESSION: BENIGN There is no mammographic evidence of malignancy. A 1 year screening mammogram is recommended. This exam was interpreted at Station ID: [id number]. NOTE: For mammograms, a report in lay terms will be sent to the patient. Approximately 15% of breast malignancies will not be visualized mammographically. In the management of a palpable breast mass, a negative mammogram must not discourage biopsy of a clinically suspicious lesion. Electronically Signed By: Luis Eduardo go/yany:01/02/2022 12:37:59 letter sent: Normal Exam ACR BI-RADS Category 2: Benign Finding(s) 3342F
== END ==
PROVIDERS: PCP Family Medicine; Referring Provider Family Medicine; Visit Provider Family Medicine
DX: Z12.31 Encounter for screening mammogram for malignant neoplasm of breast (principal)
CPT/HCPCS: 77063; 77067